=== PATIENT | female | born 1980 | race American Indian/Alaskan Native ===

== ENCOUNTER 2024-05-31 12:01 | Observation (INO) | payer OTHER ==
[2024-05-31] MEDS: Clindamycin in 0.9 % Sod Chlor 600 MG in Premix Bag 1 BAG IV ONE (12:58)
[2024-05-31 13:03] LABS: BASOPHILS PERCENT AUTO 0.2 % (0.0-1.0); HEMOGLOBIN 14.7 g/dL (12.0-16.0); LYMPHOCYTES PERCENT AUTO 12.3 % (20.5-50.1); MEAN CORPUSCULAR HEMOGLOBIN 31.7 pg (27.0-34.0); MEAN CORPUSCULAR HGB CONC 33.4 g/dL (33.0-35.0); MONOCYTES PERCENT AUTO 8.2 % (2-8); NEUTROPHILS PERCENT AUTO 77.3 % (42.2-75.2); PLATELET COUNT,PLT 248 10^3/uL (150-450); RED BLOOD CELL COUNT 4.63 10^6/uL (4.2-5.4); WHITE BLOOD CELL COUNT,WBC 11.2 10^3/uL (5.0-10.0)
[2024-05-31] MEDS: HYDROmorphone 0.5 MG/0.5 ML Syringe IVPUSH ONE (13:23)
[2024-05-31 13:24] LABS: ANION GAP 13.9 mEq/L (7-13); BLOOD UREA NITROGEN,BUN 12 mg/dL (7-18); CALCIUM 9.3 mg/dL (8.5-10.1); CARBON DIOXIDE,CO2 27 mmol/L (21-32); CHLORIDE,CL 104 mmol/L (98-107); ESTIMATED GFR 72 mL/min (>=60); GLUCOSE RANDOM 131 mg/dL (70-99); POTASSIUM,K 3.9 mmol/L (3.5-5.1); SODIUM,NA 141 mmol/L (136-145)
[2024-05-31 13:47] LABS: SEDIMENTATION RATE MANUAL 38 mm/hr (0-20)
[2024-05-31] MEDS ORDERED: Acetaminophen 325 MG Tab PO PRN (14:15)
[2024-05-31] MEDS ORDERED: Ondansetron 4 MG/2 ML SDV IVPUSH PRN (14:15)
[2024-05-31] MEDS ORDERED: Sodium Chloride 0.9% 10 ML Syringe FLUSH PRN (14:15)
[2024-05-31] MEDS: Enoxaparin 40 MG/0.4 ML Syringe SUBCUT SCH (15:28)
[2024-05-31] MEDS: oxyCODONE 5 MG Tab PO PRN (15:29)
[2024-05-31] MEDS: Piperacillin/Tazobactam 3.375 GM in Sodium Chloride 0.9% 100 ML IV SCH (15:29)
[2024-05-31] MEDS: Sodium Chloride 0.9% 1,000 ML IV SCH (15:32)
[2024-05-31] MEDS: Lisinopril 10 MG Tab PO SCH (15:33)
[2024-05-31] MEDS: VANCOmycin 1.25 GM in Sodium Chloride 0.9% 250 ML IV SCH (17:13)
[2024-05-31] MEDS: Sodium Chloride 0.9% 10 ML Syringe FLUSH SCH (20:35)
[2024-05-31] MEDS: Labetalol 100 MG Tab PO SCH (20:42)
[2024-06-01] MEDS: Morphine 2 MG/ML SYRINGE IVPUSH PRN (04:39)
[2024-06-01 06:19] LABS: BASOPHILS PERCENT AUTO 0.1 % (0.0-1.0); EOSINOPHILS PERCENT AUTO 2.1 % (1.0-3.0); HEMATOCRIT 39.1 % (37.0-47.0); HEMOGLOBIN 12.8 g/dL (12.0-16.0); LYMPHOCYTES PERCENT AUTO 16.6 % (20.5-50.1); MEAN CORPUSCULAR HEMOGLOBIN 31.8 pg (27.0-34.0); MEAN CORPUSCULAR HGB CONC 32.7 g/dL (33.0-35.0); MONOCYTES PERCENT AUTO 9.1 % (2-8); NEUTROPHILS PERCENT AUTO 72.1 % (42.2-75.2); PLATELET COUNT,PLT 216 10^3/uL (150-450); RED BLOOD CELL COUNT 4.03 10^6/uL (4.2-5.4); WHITE BLOOD CELL COUNT,WBC 10.7 10^3/uL (5.0-10.0)
[2024-06-01 06:34] LABS: ANION GAP 12.9 mEq/L (7-13); CALCIUM 8.2 mg/dL (8.5-10.1); CREATININE 0.95 mg/dL (0.55-1.02); EST CRCL DRUG DOSING (CG) 77.82 mL/min; POTASSIUM,K 3.9 mmol/L (3.5-5.1)
[2024-06-01] MEDS: Iopamidol 612 MG/ML 100 ML Bottle IVPUSH ONE (11:25)
[2024-06-01] MEDS: Temazepam 15 MG Cap PO PRN (21:46)
[2024-06-01] MEDS: Docusate Sodium 100 MG Cap PO PRN (21:47)
[2024-06-02 12:16] VITALS: BP 110/73; PULSE 78
== END 2024-06-02 13:30 | disposition home or self-care (01) ==
LOC: DL.ED 12:01 → DL.MS 14:05
PROVIDERS: ADMIT Internal Medicine; ATTEND Internal Medicine
DX: K04.7 Periapical abscess without sinus (principal); K08.89 Other specified disorders of teeth and supporting structures; I10 Essential (primary) hypertension; Z98.84 Bariatric surgery status
CPT/HCPCS: 36415; 70492; 80048; 80202; 85025; 85651; 86140; 96374; 96375; 99223; 99233; 99239; 99284; A9270; J2270; J2543; J3371; J3490; J7030; J7050; Q9967; 96365; 96366; 96367; 96376; G0378

== ENCOUNTER 2025-04-05 15:14 | Emergency (ER) | payer BC, OTHER ==
[2025-04-05] MEDS: Ondansetron 4 MG/2 ML SDV IVPUSH ONE (15:32)
[2025-04-05 15:40] LABS: BASOPHILS PERCENT AUTO 0.3 % (0.0-1.0); EOSINOPHILS PERCENT AUTO 3.6 % (1.0-3.0); LYMPHOCYTES PERCENT AUTO 18.9 % (20.5-50.1); MONOCYTES PERCENT AUTO 6.9 % (2-8); NEUTROPHILS PERCENT AUTO 70.3 % (42.2-75.2); PLATELET COUNT,PLT 252 10^3/uL (150-450); RED BLOOD CELL COUNT 4.71 10^6/uL (4.2-5.4); WHITE BLOOD CELL COUNT,WBC 7.8 10^3/uL (5.0-10.0)
[2025-04-05 15:56] LABS: INR 1.0 (0.9-1.2)
[2025-04-05] MEDS: Iopamidol 612 MG/ML 100 ML Bottle IVPUSH ONE (15:57)
[2025-04-05 15:59] LABS: HCG QUALITATIVE,SERUM NEGATIVE (NEGATIVE)
[2025-04-05 16:01] LABS: A/G RATIO 1.1; ALANINE AMINOTRANSFERASE,ALT 67 U/L (14-59); ASPARTATE AMNIOTRANSFERASE,AST 63 U/L (15-37); BILIRUBIN DIRECT 0.4 mg/dL (0.0-0.2); BILIRUBIN INDIRECT 1.2; BILIRUBIN TOTAL 1.6 mg/dL (0.2-1.0); BLOOD UREA NITROGEN,BUN 15 mg/dL (7-18); CARBON DIOXIDE,CO2 24 mmol/L (21-32); CHLORIDE,CL 104 mmol/L (98-107); CREATININE 0.98 mg/dL (0.55-1.02); EST CRCL DRUG DOSING (CG) 74.67 mL/min; ESTIMATED GFR 73 mL/min (>=60); GLUCOSE RANDOM 110 mg/dL (70-99); POTASSIUM,K 3.7 mmol/L (3.5-5.1); PROTEIN TOTAL,TP 7.4 g/dL (6.4-8.2); SODIUM,NA 142 mmol/L (136-145)
[2025-04-05 17:23] LABS: APPEARANCE,URINE CLEAR (CLEAR); GLUCOSE,URINE NEGATIVE (NEGATIVE); OCCULT BLOOD,URINE NEGATIVE (NEGATIVE)
[2025-04-05 17:32] LABS: EPITHELIAL CELLS,URINE FEW /HPF (NOT SEEN)
[2025-04-05] MEDS: Take Home: Acetaminophen/HYDROcodone 325-5 MG, 5 Tab Pack PO ONE (17:59)
[2025-04-05 18:29] VITALS: BP 128/78; PULSE 78
== END 2025-04-05 17:52 | disposition home or self-care (01) ==
LOC: DL.ED 15:14
DX: R10.13 Epigastric pain (principal); R10.11 Right upper quadrant pain; Z91.018 Allergy to other foods; Z88.1 Allergy status to other antibiotic agents; Z98.84 Bariatric surgery status
CPT/HCPCS: 36415; 74177; 80048; 80076; 81001; 82150; 83690; 84703; 85025; 85610; 96361; 96374; 96375; 99285-25; A9270-GY; J1171; J2405; J7030; Q9967